=== PATIENT | male | born 1930 | race Caucasian/White ===

== ENCOUNTER 2016-07-09 14:37 | Emergency (ER) | payer MEDICARE, OTHER ==
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
--- NOTE | ~2016-07-09 | CT71 ---
[facility] A Service [facility] RADIOLOGY TEXT RESULTS PATIENT: NALLELY SALAZAR LOCATION: SED : 31 UNIT #: [id number] AGE: [address]: Vick Zavala MD SEX: M ORDER DR: [id number] [place] [address] [id number] E MR#: [id number] Acc #: [id number] NAME: NALLELY SALAZAR : 1930 SEX: M STUDY DATE/TIME: 07/09/2016 14:42 UNIT: SED ROOM: STUDY DESCRIPTION: CT Head Wo Contrast Attending Physician: Vick Zavala M.D. Ordering Physician: Vick Zavala M.D. Primary Care Physician: Josse Lynn M.D. MEDICAL IMAGING REPORT This report is preliminary unless electronic signature is present. EXAM Head CT no contrast, 07/09/2016 HISTORY Fell and struck back of head. Right-sided pain, fall today. PROCEDURE Axial unenhanced head CT. This CT exam was performed with one or more of the following radiation dose reduction techniques: automatic exposure control, adjustment of mA and/or kV according to patient size, and iterative reconstruction. COMPARISON None. FINDINGS There is mild volume loss with mildly prominent CSF spaces but no hemorrhage or mass or hydrocephalus, midline shift, or other acute abnormality. 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 The brain parenchymal density is otherwise normal. The skull base and calvarium are normal. IMPRESSION Mild chronic changes. No acute intracranial abnormality. Dictated by... Elmer Webb M.D. THIS IS AN ELECTRONICALLY VERIFIED REPORT [facility] A Service [facility] RADIOLOGY TEXT RESULTS PATIENT: NALLLEY SALAZAR LOCATION: SED : 31 UNIT #: [id number] AGE: [address]: Vick Zavala MD SEX: M ORDER DR: Elmer Webb M.D. at 07/12/2016 3:48 PM TEV/ljd TD: 07/09/2016 21:04 JOB #: [id number] MEDICAL IMAGING REPORT
[~2016-07-09 14:37] MED LIST: ALDARA TOP; ALEVE220 M1 PO; ASPIRIN PO; ASPIRIN81 M1 PO; ASPIRIN81 M2 PO; BACTROBAN15 GM TOP; CARAFATE1 G PO; CARAFATE1 GM PO; CARVEDILOL6.25 MG PO; CELEBREX PO; CENTRUM PO; CENTRUM SILVER; CENTRUM SILVER PO; CIPRO; CIPRO PO; COREG PO; COREG6.25 MG PO; CRESTOR; CRESTOR10 MG PO; DELTASONE20 MG PO; ELIQUIS5 MG PO; FLOMAX0.4 M1 PO; FLONASE; FLONASE 0.05% N16 G1; FLOVENT HFA12 G1; FOSINOPRIL PO; FOSINOPRIL SODI10 MG PO; GLUCOPHAGE500 MG PO; HCTZ PO; LEVAQUIN750 MG PO; LOPRESSOR PO; MIRALAX17 GM PO; MONOPRIL10 M1 PO; MONOPRIL10 MG PO; MULTIVITAMIN; NAPROXEN; PROTONIX PO; TRAVEL MOTION S25 MG PO; VALTREX PO; VALTREX500 MG DOB; VALTREX500 MG PO; VOSOL HC O10 ML OTIC AU; ZYCLARA1 EACH TOP
[2017-01-17] MEDS ORDERED: ASPIRIN81 M2 PO (16:01)
[2017-01-17] MEDS ORDERED: PANTOPRAZOLE SO40 MG PO (16:02)
== END 2016-07-09 15:56 | disposition home or self-care (01) ==
LOC: SED 14:37
DX: S09.90XA Unspecified injury of head, initial encounter (principal); S33.5XXA Sprain of ligaments of lumbar spine, initial encounter; S20.219A Contusion of unspecified front wall of thorax, initial encounter; Z23 Encounter for immunization; E78.5 Hyperlipidemia, unspecified; I10 Essential (primary) hypertension; Z86.79 Personal history of other diseases of the circulatory system; Z95.1 Presence of aortocoronary bypass graft; W01.0XXA Fall on same level from slipping, tripping and stumbling without subsequent striking against object, initial encounter; Y92.9 Unspecified place or not applicable
CPT/HCPCS: 70450; 71020; 90471; 90715; 99284